=== PATIENT | male | born 1970 | race Caucasian/White ===

== ENCOUNTER 2021-01-09 15:36 | Emergency (ER) | payer BC ==
[~2021-01-09] VITALS: Ht 165.1 cm; Wt 90.7 kg
== END 2021-01-09 20:02 | disposition home or self-care (01) ==
LOC: ER1 15:36
DX: U07.1 COVID-19 (principal); Z23 Encounter for immunization; J45.909 Unspecified asthma, uncomplicated; E11.9 Type 2 diabetes mellitus without complications
CPT/HCPCS: 99283; M0243